=== PATIENT | male | born 1985 | race Caucasian/White ===

== ENCOUNTER 2017-11-17 15:00 | Emergency (ER) | payer OTHER ==
--- NOTE | 2017-11-17 16:14 | ER Document Report ---
ED Flu Like - General Chief Complaint: Flu Symptoms Stated Complaint: FLU SYMPTOMS Time Seen by Provider: 11/17/17 16:08 Mode of Arrival: Medic Information source: Patient Notes: 32 yo male dx with influenza A yesterday by swab at [facility] after sudden onset of fever, bodyaches, nausea, headache. no runny nose or cough. Started on Tamiflu. Fever broke last night but again today develped racing heart , fever to 104, given IV fluid, tylenol enroute. No abd. pain,no vomiting or diarrhea. No rash. No sore throat. No testicle pain. Had red blood with BM past 3 days, hx hemorrhoid. TRAVEL OUTSIDE OF THE [place] IN LAST 30 DAYS: No - Related Data Allergies/Adverse Reactions: No Known Allergies Allergy (Unverified 11/17/17 15:05) Past Medical History - General Information source: Patient - Social History Smoking Status: Never Smoker Frequency of alcohol use: None Drug Abuse: None Lives with: Spouse/Significant other Family History: Reviewed & Not Pertinent - Medical History Medical History: Negative Surgical Hx: Negative Review of Systems - Review of Systems Constitutional: See HPI EENT: No symptoms reported Cardiovascular: No symptoms reported Respiratory: See HPI Gastrointestinal: No symptoms reported Genitourinary: No symptoms reported Male Genitourinary: No symptoms reported Musculoskeletal: No symptoms reported Skin: No symptoms reported Hematologic/Lymphatic: No symptoms reported Neurological/Psychological: No symptoms reported Physical Exam - Vital signs Vitals: Temp Pulse Resp BP Pulse Ox 99.6 F 102 H 18 100/66 95 11/17/17 15:48 11/17/17 15:48 11/17/17 15:48 11/17/17 15:48 11/17/17 15:48 Interpretation: Normal - General General appearance: Appears well, Alert In distress: None - HEENT Head: Normocephalic, Atraumatic Eyes: Normal Conjunctiva: Normal Pupils: PERRL Tympanic membrane: Normal Pharynx: Erythema - mild Neck: Supple. No: Lymphadenopathy, Thyromegally - Respiratory Respiratory status: No respiratory distress Chest status: Nontender Breath sounds: Normal Chest palpation: Normal - Cardiovascular Rhythm: Regular Heart sounds: Normal auscultation Murmur: No - Abdominal Inspection: Normal Distension: No distension Bowel sounds: Normal Tenderness: Nontender. No: Tender Organomegaly: No organomegaly - Rectal Tenderness: No Hemorrhoids: Internal - canal, not bleeding now - Back Back: Normal, Nontender. No: CVA tenderness - Extremities General upper extremity: Normal inspection, Nontender, Normal color, Normal ROM , Normal temperature General lower extremity: Normal inspection, Nontender, Normal color, Normal ROM , Normal temperature, Normal weight bearing. No: Laquita's sign - Neurological Neuro grossly intact: Yes Cognition: Normal Orientation: AAOx4 Emigido Coma Scale Eye Opening: Spontaneous Dennis Coma Scale Verbal: Oriented Dennis Coma Scale Motor: Obeys Commands Dennis Coma Scale Total: 15 Speech: Normal Motor strength normal: LUE, RUE, LLE, RLE Sensory: Normal - Psychological Associated symptoms: Normal affect, Normal mood - Skin Skin Temperature: Warm Skin Moisture: Dry Skin Color: Normal Skin irregularity: negative: Rash Course - Re-evaluation Re-evalutation: 11/17/17 17:11 chest xray is negative. Will send home to continue tamiflu. plenty of fluids, tylenol, motrin, rest. - Vital Signs Vital signs: Temp Pulse Resp BP Pulse Ox 99.6 F 102 H 18 100/66 95 11/17/17 15:48 11/17/17 15:48 11/17/17 15:48 11/17/17 15:48 11/17/17 15:48 Discharge - Discharge Clinical Impression: influenza A Fever Qualifiers: Fever type: due to other condition Qualified Code(s): R50.81 - Fever presenting with conditions classified elsewhere Condition: Good Disposition: HOME, SELF-CARE Instructions: Acetaminophen, Ibuprofen (General) ([facility], 1928–1983), Influenza ([facility], 1928–1983) 2008- 2009 Additional Instructions: drink plenty of fluids Prescriptions: Ibuprofen [Motrin 800 mg Tablet] 800 mg PO Q8HP PRN #30 tablet PRN Reason: Forms: Return to Work
--- NOTE | 2017-11-17 17:06 | RADIOLOGY REPORT (SQ) ---
EXAM DESCRIPTION: CHEST PA/LAT COMPLETED DATE/TIME: 11/17/2017 4:55 pm REASON FOR STUDY: fever, influence A COMPARISON: None. EXAM PARAMETERS: NUMBER OF VIEWS: two views TECHNIQUE: Digital Frontal and Lateral radiographic views of the chest acquired. RADIATION DOSE: NA LIMITATIONS: none FINDINGS: LUNGS AND PLEURA: No opacities, masses or pneumothorax. No pleural effusion. MEDIASTINUM AND HILAR STRUCTURES: No masses or contour abnormalities. HEART AND VASCULAR STRUCTURES: Heart normal size. No evidence for failure. BONES: No acute findings. HARDWARE: None in the chest. OTHER: No other significant finding. IMPRESSION: NO SIGNIFICANT RADIOGRAPHIC FINDING IN THE CHEST. TECHNICAL DOCUMENTATION: JOB ID: [id number] [employer]- All Rights Reserved
[2017-11-17 17:39] VITALS: BP 116/75
== END 2017-11-17 17:35 | disposition home or self-care (01) ==
LOC: ER 15:00
DX: J09.X2 Influenza due to identified novel influenza A virus with other respiratory manifestations (principal); R50.81 Fever presenting with conditions classified elsewhere; R00.2 Palpitations
CPT/HCPCS: 71046; 99283